=== PATIENT | female | born 1960 | race Caucasian/White ===

== ENCOUNTER 2018-01-24 08:36 | Day surgery (SDC) | payer BC ==
[2018-01-23 15:20] VITALS: BMI 33.6
[2018-01-24 09:34] LABS: #Basophils 0.1 thou/uL (0.0-0.2); #Eosinphils 0.2 thou/uL (0.0-0.7); #Monocytes 0.6 thou/uL (0.11-0.59); #Neutrophils 4.7 thou/uL (1.40-6.50); %Basophils 1.3 % (0.0-1.0); %Lymphocytes 26.1 % (21.0-51.0); %Neutrophils 62.6 % (42.0-75.0); Hemoglobin 13.9 g/dL (12.0-16.0); Mean Corpuscular HGB CONC 33.6 g/dL (32.0-36.0); Mean Corpuscular Hemoglobin 30.6 pg (27.0-31.0); Mean Platelet Volume 7.5 fL (7.4-10.4); Platelet Count 211 thou/uL (130-400); RBC Distribution Width 13.1 % (11.5-14.5); Red Blood Cell (RBC) Count 4.54 mill/uL (4.20-5.40); White Blood Cell (WBC) Count 7.6 thou/uL (4.8-10.8)
[2018-01-24] MEDS ORDERED: CEFAZOLIN/Water 2 GM/20 ML SYRINGE ONE (09:45)
[2018-01-24 09:57] LABS: Anion Gap 10 mmol/L (10-20); BUN (Urea Nitrogen) 12 mg/dL (9.8-20.1); Calc. Creatinine Clearance 109 mL/min (70-130); Calcium 9.6 mg/dL (7.8-10.44); Carbon Dioxide 26 mmol/L (22-29); Chloride 106 mmol/L (98-107); Estimated GFR-MDRD 80; Glucose 113 mg/dL (70-105); Potassium 3.8 mmol/L (3.5-5.1); Sodium 138 mmol/L (136-145)
[2018-01-24] MEDS ORDERED: Midazolam HCl 2 mg/2 ml Vial ONE (10:20)
[2018-01-24] MEDS ORDERED: Fentanyl 100 MCG/2 ML VIAL ONE ×2 (10:20→11:36)
[2018-01-24] MEDS ORDERED: PHENYLEPHRINE-NS 100 MCG/ML 10 ML SYRINGE ONE (13:13)
[2018-01-24] MEDS ORDERED: Lidocaine 1% PF 5 ML VIAL ONE (13:13)
[2018-01-24] MEDS ORDERED: PROPOFOL 200 MG/20 ML VIAL ONE (13:13)
[2018-01-24] MEDS ORDERED: Ondansetron HCl/PF 4 MG/2 ML Vial ONE (13:13)
--- NOTE | 2018-01-24 14:50 | OP ---
DATE OF PROCEDURE: 01/24/2018 PREOPERATIVE DIAGNOSIS: Left knee medial meniscus tear. POSTOPERATIVE DIAGNOSIS: Left knee medial meniscus tear. PROCEDURE PERFORMED: Left knee arthroscopy with partial medial meniscectomy. SURGEON: Dewayne Deluca M.D. EDUCATION PROGRAM SPECIALIST: None. BLOOD LOSS: Minimal. COMPLICATIONS: None. ANESTHESIA: She had general anesthetic as well as a local knee block. DISPOSITION: She did go to recovery room in stable condition. INDICATIONS: Ms. Denis is a 57-year-old female who has had problems with pain, swelling, and catchi ng in her knee. MRI confirmed a large complex meniscus tear in the posterior horn of the medial meni scus and at this time, she opted to have surgery. DESCRIPTION OF PROCEDURE: After all appropriate consent forms were explained and signed, she was harry en to the operating room and at this time was given general anesthetic. Once anesthesia was appropri ate, the tourniquet was placed on the left thigh and leg was then placed arthroscopic leg jovel. Th e limb was then prepped and draped in the standard surgical fashion. The limb was exsanguinated and the tourniquet was taken up to 300 mmHg. An inferolateral portal was then established and the scope was placed into the knee joint. A needle localization technique was then used to make a medial worki ng portal. Diagnostic arthroscopy commenced in the notch. ACL and PCL probed and found to be intact . The medial compartment showed the tibial plateau to be in good condition. A small area of some gr shashi II wear in the femur, but otherwise the femur was in good condition as well. There was a very la rge complex tear of the medial meniscus and the body posterior horn junction. There was a large flap component to this as well and a partial medial meniscectomy was performed using meniscal biter and s haver. Lateral compartment was evaluated and felt to be intact. Gutters were swept through and no l oose bodies were noted. Patellofemoral joint was found to be in good condition. At this time, the s cope was removed, knee was drained. Portals were closed with simple nylon stitch. Bulky sterile kd ssing was then applied, tourniquet let down. Toes pinked up nicely. The patient was awakened and ta nova to the recovery room in stable condition. All counts were correct at the end of the case. She r eceived preoperative IV antibiotics.
== END 2018-01-24 14:40 | disposition home or self-care (01) ==
LOC: SDC 08:36
PROVIDERS: ATTEND Orthopaedic Surgery
PROC: 0SBD4ZZ Excision of Left Knee Joint, Percutaneous Endoscopic Approach (ICD-10-PCS; principal; 2018-01-24)
DX: S83.232A Complex tear of medial meniscus, current injury, left knee, initial encounter (principal)
CPT/HCPCS: 36415; 80048; 85025; 93005; 93010; G8978-GP-CJ; G8979-GP-CJ; G8980-GP-CJ; J2001; J2250; J2405; J2704; J3010